=== PATIENT | male | born 1955 | race Caucasian/White ===

== ENCOUNTER 2018-10-25 08:35 | Outpatient (RCR) | payer OTHER | END 2019-01-23 | disposition home or self-care (01) | LOC: WSOH | DX: M25.562 Pain in left knee (principal); M17.12 Unilateral primary osteoarthritis, left knee; X50.0XXA Overexertion from strenuous movement or load, initial encounter; Y92.214 College as the place of occurrence of the external cause; Y99.0 Civilian activity done for income or pay; M25.462 Effusion, left knee; R20.0 Anesthesia of skin; J45.909 Unspecified asthma, uncomplicated; Z09 Encounter for follow-up examination after completed treatment for conditions other than malignant neoplasm; Z88.0 Allergy status to penicillin; Z88.2 Allergy status to sulfonamides; Z79.899 Other long term (current) drug therapy; Z98.890 Other specified postprocedural states; E11.69 Type 2 diabetes mellitus with other specified complication; Z79.84 Long term (current) use of oral hypoglycemic drugs ==

== ENCOUNTER → 2019-06-10 | Outpatient (CLI) | payer BC ==
--- NOTE | 2019-06-06 08:17 | NUR ---
attempted to call pt, line busy
[~2019-06-10] VITALS: Ht 188 cm; Wt 118.9 kg
[2019-06-10] VITALS (7 sets, daily range): BP systolic 87–157; BP diastolic 45–85; PULSE 50–83
[~2019-06-10] MED LIST: CELEBREX 200MG200 MG PO; COREG 6.256.25 MG/TA PO; GLUCOPHAGE500 MG/TAB PO; LIPITOR 40MG TA40 MG PO; PROAIR DIGIHAL90 MCG IH; PULMICORT180 MCG/Ac IH
== END ==
LOC: COL.CARD 05:45
DX: I20.8 Other forms of angina pectoris (principal)
CPT/HCPCS: A9500; J2785

== ENCOUNTER 2019-06-28 06:51 | Day surgery (SDC) | payer BC ==
[~2019-06-28] VITALS: Ht 188 cm; Wt 120.0 kg
[2019-06-28] VITALS (22 sets, daily range): BP systolic 130–200; BP diastolic 61–101; PULSE 51–69; TEMP 97.9
[2019-06-28 08:14] LABS: HEMATOCRIT 41.7 % (42.0-52.0); HEMOGLOBIN 13.9 g/dl (13.5-18.0); MEAN CELL VOLUME 87 fl (80.0-100.0); MEAN CORPUSCULAR HEMOGLOBIN 29 pg (27.0-31.0); MEAN CORPUSCULAR HGB CONC 33 g/dl (33.0-37.0); MEAN PLATELET VOLUME 9.9 fl (7.4-10.4); PLATELET COUNT 243 K/mm3 (130-400); RED BLOOD COUNT 4.77 M/mm3 (4.20-5.60); REDCELL DISTRIBUTION WIDTH-CV 13.9 % (11.5-14.5)
[2019-06-28 08:28] LABS: PROTHROMBIN TIME 11.4 SECONDS (9.7-12.8)
[2019-06-28 08:31] LABS: PARTIAL THROMBOPLASTIN TIME 33.2 SECONDS (26.0-37.0)
[2019-06-28] MEDS ORDERED: NITROSTAT0.4 MG/TAB SL (08:40)
[2019-06-28] MEDS ORDERED: ASPIRIN 81M81 MG/TA2 PO (08:40)
[2019-06-28 08:43] LABS: CALCIUM 9.3 mg/dL (8.4-10.2); CREATININE, serum 0.78 (0.66-1.25); POTASSIUM 4.4 mmol/L (3.4-5.0)
--- NOTE | 2019-06-28 09:08 | NUR ---
SEE MERGE FOR MEDICATION ADMINISTRATION TIMES AND INTRA AND POST SEDATION ASSESMENTS
--- NOTE | 2019-06-28 09:59 | NUR ---
BEDSIDE HAND OFF REPORT TO STACIE STAPLES. PT IS ALERT AND ORIENTED. TR BAND TO R WRIST. HEMOSTASIS NOTED.
[2019-06-28] MEDS ORDERED: COREG 25MG25 MG/TAB PO (10:56)
[2019-06-28] MEDS ORDERED: NITRO-DUR0.4 MG/PAT TD (10:58)
[2019-06-28] MEDS ORDERED: RANEXA 500MG T500 MG PO (10:59)
--- NOTE | 2019-06-28 13:56 | NUR ---
Pt up to dress per pt report he got headache.Pt assissted back to bed,vitals obtained.see flowsheet.
--- NOTE | 2019-06-28 14:07 | NUR ---
Discharge instructions given to pt.Pt verbalizes understanding.
--- NOTE | 2019-06-28 15:41 | NUR ---
INT removed,catheter tip intact.Pt escorted out via wheelchair by this nurse into hired transportation.
== END 2019-06-28 15:42 | disposition home or self-care (01) ==
LOC: COL.CAR 06:51
PROVIDERS: Internal Medicine Cardiovascular Disease
DX: I25.10 Atherosclerotic heart disease of native coronary artery without angina pectoris (principal); E78.5 Hyperlipidemia, unspecified; E11.9 Type 2 diabetes mellitus without complications; I10 Essential (primary) hypertension; E66.9 Obesity, unspecified; R94.39 Abnormal result of other cardiovascular function study; Z79.84 Long term (current) use of oral hypoglycemic drugs; Z88.0 Allergy status to penicillin
CPT/HCPCS: J1644; J2250; J3010

== ENCOUNTER → 2020-02-27 | Outpatient (CLI) | payer BC ==
[~2020-02-27] MED LIST changes: +ASPIRIN 81M81 MG/TA2 PO; +COREG 25MG25 MG/TAB PO; +NITRO-DUR0.4 MG/PAT TD; +NITROSTAT0.4 MG/TAB SL; +RANEXA 500MG T500 MG PO
== END | disposition still patient (30) ==
LOC: COL.RAD 14:52
DX: Z01.818 Encounter for other preprocedural examination (principal); I25.10 Atherosclerotic heart disease of native coronary artery without angina pectoris; I70.0 Atherosclerosis of aorta; M47.814 Spondylosis without myelopathy or radiculopathy, thoracic region

== ENCOUNTER → 2021-01-07 | Outpatient (CLI) | payer BC | LOC: COL.RAD 07:00 | DX: N20.0 Calculus of kidney (principal); N32.89 Other specified disorders of bladder | CPT/HCPCS: Q9967 ==

== ENCOUNTER → 2024-02-23 | Outpatient (CLI) | payer MEDICARE, OTHER | LOC: COL.RAD 08:47 | DX: M79.672 Pain in left foot (principal) ==